=== PATIENT | male | born 1985 | race Caucasian/White ===

== ENCOUNTER 2025-01-15 23:14 | Emergency (ER) | payer MEDICARE, SELFPAY ==
[2025-01-15 23:29] VITALS: BP 123/79; PULSE 91; RESP 15; TEMP 36.7; O2SAT 98; BMI 32.8
[2025-01-16 02:00] VITALS: BP 139/106; PULSE 81; O2SAT 96
[2025-01-16 03:33] VITALS: BP 130/93; PULSE 72; O2SAT 96
--- NOTE | 2025-01-16 03:38 | ECG_ITS ---
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 Measurements Intervals [place] Rate: 64 P: 43 [place]: 172 QRS: 45 QRSD: 91 T: 29 QT: 394 QTc: 409 Interpretive Statements SINUS RHYTHM No previous ECG available for comparison Electronically Signed On 01-16-2025 09:14:32 CDT by Pernell Escudero M.D. [email or web address]
[2025-01-16 04:20] LABS: Basophils # 0.1 10^3/uL (0.0-0.1); Basophils % 0.6 %; Eosinophils # 0.4 10^3/uL (0.0-0.8); Eosinophils % 3.8 %; Lymphocytes # 3.2 10^3/uL (0.8-4.8); Lymphocytes % 32.7 %; Mean Corpuscular HGB Conc 33.8 g/dL (30-55); Mean Corpuscular Hemoglobin 30.8 pg (27-33); Mean Corpuscular Volume 91.1 fl (82-101); Mean Platelet Volume 9.1 fL (7.4-10.4); Monocytes # 0.8 10^3/uL (0.2-0.9); Neutrophils # 5.39 10^3/uL (1.8-7.7); Neutrophils % 54.5 %; Nucleated Red Blood Cells % 0 %; Platelet Count 297 10^3/cmm (157-399); Red Blood Count 5.16 10^6/uL (3.85-5.65); Red Cell Distribution Width 13.2 % (12.1-15.1)
--- NOTE | 2025-01-16 04:32 | ED_ITS ---
HPI - General Adult 2 General: Chief complaint: General Medical Stated complaint: Weakness\Tired Time Seen by Provider: 01/16/25 03:16 History of Present Illness: 39-year-old male who restarted his psych iatric medications yesterday. Since then he has been weak, tired. He states he has been generally weak. No fever, no cough or congestion. No vomiting or diarrhea. No chest discomfort. He did have some burning sensation in his chest on the way here but believes this may have been panic, as it was resolved on his arrival here. He has been off his medication a year. He restarted at his previous dose that had been titrated up over time. No other changes. Related Data Allergies Allergy/AdvReac Type Severity Reaction Status Date / Time trazodone Allergy ADR-Agitate Verified 01/15/25 23:32 d Physical Exam 2 Const: COMMON NORMALS: no acute distress GENERAL APPEARANCE: cooperative; not ill appearing and not frail appearing HENMT: COMMON NORMALS: normocephalic, atraumatic and Normal external nose present HEAD & SCALP: normocephalic and atraumatic FACE & SINUS: normal facial exam and face symmetric NOSE: Normal external nose present Eye: COMMON NORMALS: Equal, round and reactive pupils present and EOMs intact bilaterally PUPIL: Yes Equal, round and reactive pupils present Neck/C-Spine: GENERAL: Yes trachea midline Chest: CHEST: Yes Symmetrical chest wall rise Resp: COMMON NORMALS: normal respiratory effort, No retractions, No use of accessory muscles and clear to auscultation bilaterally AUSCULTATION: clear to auscultation bilaterally Cardio: COMMON NORMALS: regular rate and regular rhythm RATE: regular rate RHYTHM: regular rhythm GI: COMMON NORMALS: Normal to inspection, nondistended, normoactive bowel sounds present Extremity: COMMON NORMALS: no pedal edema Neuro: MICHELET COMA SCALE: document GCS findings [place] coma scale eye opening: Spontaneous [place] coma scale verbal response: Orientated [place] coma scale motor response: Obey commands [place] coma scale total score: 15 S ENSORY EXAM: Yes extremities (intact) Psych: COMMON NORMALS: speech normal SPEECH: Yes normal speech Skin: COMMON NORMALS: no rashes or lesions noted GENERAL SKIN EXAM: no rashes or lesions noted Course 2 Vital Signs: Vital signs: Vital Signs Temperature 98.0 F 01/15/25 23:29 Pulse Rate 72 01/16/25 03:33 Respiratory Rate 15 01/15/25 23:29 Blood Pressure 130/93 01/16/25 03:33 Pulse Oximetry 96 01/16/25 03:33 Oxygen Delivery Me thod Room Air 01/16/25 03:33 MDM - General Adult Medical Decision Making CBC is normal. Vitals are normal. His exam is not remarkable. EKG shows a normal sinus rhythm. Laboratory otherwise normal as well. He will be discharged. to stop medication for now. Lab Data 01/16/25 04:11 01/16/25 04:11 Laboratory Results WBC 9.90 10^3/uL (3.29-11.43) 01/16/25 04:11 RBC 5.16 10^6/uL (3.85-5.65) 01/16/25 04:11 Hgb 15.90 g/dL (11.27-16.99) 01/16/25 04:11 Hct 47.0 % (37-53) 01/16/25 04:11 MCV 91.1 fl (82-101) 01/16/25 04:11 MCH 30.8 pg (27-33) 01/16/25 04:11 MCHC 33.8 g/dL (30-55) 01/16/25 04:11 RDW 13.2 % (12.1-15.1) 01/16/25 04:11 Plt Count 297 10^3/cmm (157-399) 01/16/25 04:11 MPV 9.1 fL (7.4-10.4) 01/16/25 04:11 Neut % (Auto) 54.5 % 01/16/25 04:11 Lymph % (Auto) 32.7 % 01/16/25 04:11 [place] % (Auto) 8.0 % 01/16/25 04:11 Eos % (Auto) 3.8 % 01/16/25 04:11 Baso % (Auto) 0.6 % 01/16/25 04:11 Neut # (Auto) 5.39 10^3/uL (1.8-7.7) 01/16/25 04:11 Lymph # (Auto) 3.2 10^3/uL (0.8-4.8) 01/16/25 04:11 [place] # (Auto) 0.8 10^3/uL (0.2-0.9) 01/16/25 04:11 Eos # (Auto) 0.4 10^3/uL (0.0-0.8) 01/16/25 04:11 Baso # (Auto) 0.1 10^3/uL (0.0-0.1) 01/16/25 04:11 Nucleated RBC % (auto) 0 % 01/16/25 04:11 Nucleated RBCs # 0.0 /100WBC 01/16/25 04:11 Sodium 136 mmol/L (136-145) 01/16/25 04:11 Potassium 4.2 mmol/L (3.5-5.1) 01/16/25 04:11 Chloride 98 mmol/L (98-107) 01/16/25 04:11 Carbon Dioxide 26 mmol/L (22-29) 01/16/25 04:11 Anion Gap 16.2 (5-19) 01/16/25 04:11 BUN 14 mg/dL (6-20) 01/16/25 04:11 Creatinine 0.7 mg/dL (0.7-1.2) 01/16/25 04:11 GFR Calculation 126.2 mL/min (90-130) 01/16/25 04:11 Glucose 101 mg/dL (65-115) 01/16/25 04:11 Calculated Osmolality 283 mOsm/kg (285-295) L 01/16/25 04:11 Calcium 9.3 mg/dL (8.5-10.5) 01/16/25 04:11 Magnesium 2.1 mg/dL (1.7-2.3) 01/16/25 04:11 Total Bilirubin 0.5 mg/dL (0.15-1.2) 01/16/25 04:11 AST 21 U/L (0-40) 01/16/25 04:11 ALT 30 U/L (0-41) 01/16/25 04:11 Alkaline Phosphatase 104 U/L (40-130) 01/16/25 04:11 Total Protein 7.8 g/dL (6.6-8.7) 01/16/25 04:11 Albumin 4.4 g/dL (3.5-5.2) 01/16/25 04:11 Globulin 3.4 g/dL (1.3-4.6) 01/16/25 04:11 TSH 1.42 uIU/mL (0.27-4.20) 01/16/25 04:11 No radiology studies performed this visit Discharge Plan Discharge Patient Disposition: Home Clinical Impression: Medication adverse effect Condition: Stable Discharge Orders: Discharge ED (Routine); Ordered 01/16/25 Ordered By: Terrance Chan Patient Instructions: Weakness (ED), Opioid Safety, Pain Management Activity Restrictions/Additional Instructions: Case management will contact you regarding a follow-up appointment with behavioral health. They can evaluate you, and perhaps prescribe a medication that does not have these adverse effects. For now stop the medication you were taking. Return for any problems. Stay hydrated, particularly for the next 48 hours. Print Language: Uzbek Coding Level of Care Code ED Plate Drying Machine Tender for Farrah Niño
[2025-01-16 04:48] LABS: Alanine Aminotransferase 30 U/L (0-41); Albumin Level 4.4 g/dL (3.5-5.2); Alkaline Phosphatase 104 U/L (40-130); Anion Gap 16.2 (5-19); Aspartate Amino Transferase 21 U/L (0-40); Blood Urea Nitrogen 14 mg/dL (6-20); Calcium 9.3 mg/dL (8.5-10.5); Carbon Dioxide 26 mmol/L (22-29); Chloride 98 mmol/L (98-107); Creatinine Clr Calc Pharmacy 157.3747; Globulin 3.4 g/dL (1.3-4.6); Glomerular Filtration Rate 126.2 mL/min (90-130); Glucose 101 mg/dL (65-115); Magnesium 2.1 mg/dL (1.7-2.3); Osmolality Calculated 283 mOsm/kg (285-295); Potassium 4.2 mmol/L (3.5-5.1); Sodium 136 mmol/L (136-145); Thyroid Stimulating Hormone 1.42 uIU/mL (0.27-4.20); Total Bilirubin 0.5 mg/dL (0.15-1.2); Total Protein 7.8 g/dL (6.6-8.7)
[2025-01-16 05:18] VITALS: BP 126/88; PULSE 58; RESP 18; O2SAT 96
== END 2025-01-16 05:19 | disposition home or self-care (01) ==
PROVIDERS: Emergency Provider Emergency Medicine
DX: T50.905A Adverse effect of unspecified drugs, medicaments and biological substances, initial encounter (principal); X58.XXXA Exposure to other specified factors, initial encounter
CPT/HCPCS: 36415; 80053; 83735; 84443; 85025; 93005; 99284